=== PATIENT | female | born 1995 | race Caucasian/White ===

== ENCOUNTER 2023-04-17 16:55 | Emergency (ER) | payer MEDICAID ==
[2023-04-17] MEDS: Ketorolac 30 MG/ML SDV IM ONE (18:01)
== END 2023-04-17 19:38 | disposition home or self-care (01) ==
LOC: FB.ED 16:55
DX: M89.8X7 Other specified disorders of bone, ankle and foot (principal); Z86.16 Personal history of COVID-19; Z88.0 Allergy status to penicillin; Z88.1 Allergy status to other antibiotic agents; Z88.8 Allergy status to other drugs, medicaments and biological substances
CPT/HCPCS: 73630-LT; 96372; 99282; 99283; J1885

== ENCOUNTER 2023-05-23 17:24 | Emergency (ER) | payer MEDICAID ==
[2023-05-23 18:19] LABS: BASOPHILS PERCENT AUTO 0.3 % (0.2-1.5); EOSINOPHILS ABSOLUTE AUTO 0.1 x10-3/uL (0.0-0.8); EOSINOPHILS PERCENT AUTO 1.7 % (0.6-8.1); HEMATOCRIT 37.1 % (34.2-48.2); HEMOGLOBIN 12.3 g/dL (11.4-15.5); LYMPHOCYTES ABSOLUTE AUTO 2.4 x10-3/uL (1.0-4.4); MEAN CORPUSCULAR HEMOGLOBIN 27.8 pg (23.9-33.9); MEAN CORPUSCULAR HGB CONC 33.3 g/dL (31.9-34.8); MEAN CORPUSCULAR VOLUME 83.7 fL (76.7-100.5); MEAN PLATELET VOLUME 8.7 fL (7.1-12.4); MONOCYTES ABSOLUTE AUTO 0.4 x10-3/uL (0.3-1.0); MONOCYTES PERCENT AUTO 5.8 % (4.4-15.7); NEUTROPHILS ABSOLUTE AUTO 3.9 x10-3/uL (1.5-6.3); NEUTROPHILS PERCENT AUTO 57.2 % (30.8-76.2); PLATELET COUNT,PLT 260 x10(3)uL (151-488); RED BLOOD CELL COUNT 4.43 x10(6)uL (3.60-5.20); RED CELL DISTRIBUTION WIDTH 12.8 % (12.3-16.5); WHITE BLOOD CELL COUNT,WBC 6.9 x10-3/uL (3.0-10.3)
[2023-05-23 18:21] LABS: BLOOD UREA NITROGEN,BUN 14 mg/dL (7-18); BUN/CREATININE RATIO 17.5 (9-20); CALCIUM 9.2 mg/dL (8.6-10.2); CARBON DIOXIDE,CO2 32 mmol/L (21-32); CHLORIDE,CL 103 mmol/L (100-110); CREATININE 0.8 mg/dL (0.55-1.02); EST CRCL DRUG DOSING (CG) 95.89 mL/min; ESTIMATED GFR 104 mL/min (>60); GLUCOSE RANDOM 131 mg/dL (80-116); POTASSIUM,K 3.9 mmol/L (3.5-5.3); SODIUM,NA 141 mmol/L (135-145)
[2023-05-23 18:24] LABS: BILIRUBIN,URINE NEGATIVE (NEGATIVE); GLUCOSE,URINE NORMAL (NORMAL); KETONES,URINE NEGATIVE (NEGATIVE); LEUKOCYTE ESTERASE,URINE NEGATIVE (NEGATIVE); NITRITE,URINE NEGATIVE (NEGATIVE); OCCULT BLOOD,URINE NEGATIVE (NEGATIVE); PROTEIN,URINE NEGATIVE (NEGATIVE); UROBILINOGEN,URINE NORMAL (NEGATIVE)
[2023-05-23 18:27] LABS: ALANINE AMINOTRANSFERASE,ALT 61 U/L (12-36); ALBUMIN 3.6 g/dL (3.5-5.2); ALKALINE PHOSPHATASE 65 IU/L (56-112); ASPARTATE AMNIOTRANSFERASE,AST 27 IU/L (5-25); BILIRUBIN TOTAL 0.4 mg/dL (0.1-1.3); PROTEIN TOTAL,TP 7.1 g/dL (6.0-8.0)
[2023-05-23 18:28] LABS: AMORPHOUS SEDIMENT,URINE FEW; APPEARANCE,URINE SLIGHTLY CLOUDY (CLEAR); BACTERIA,URINE FEW (NS); COLOR,URINE YELLOW (YELLOW); RBC,URINE NOT SEEN (0-5); SQUAMOUS EPITHELIAL CELLS,UR FEW (NS,R,O); WBC,URINE 0-5 (0-5)
[2023-05-23] MEDS ORDERED: Ketorolac 30 MG/ML SDV IM ONE (19:09)
== END 2023-05-23 19:39 | disposition home or self-care (01) ==
LOC: FB.ED 17:24
DX: R51.9 Headache, unspecified (principal); R53.83 Other fatigue; E11.40 Type 2 diabetes mellitus with diabetic neuropathy, unspecified; Z86.16 Personal history of COVID-19; Z20.822 Contact with and (suspected) exposure to COVID-19; Z88.8 Allergy status to other drugs, medicaments and biological substances; Z88.0 Allergy status to penicillin; Z88.1 Allergy status to other antibiotic agents; Z79.84 Long term (current) use of oral hypoglycemic drugs
CPT/HCPCS: 36415; 80053; 81001; 82947; 85025; 86140; 87635; 96372; 99284; J1885; U0002